=== PATIENT | female | born 1925 | race Caucasian/White ===

== ENCOUNTER 2016-10-06 10:12 | Inpatient (IN) | payer OTHER, MEDICAID ==
[~2016-10-06] VITALS: Ht 157.5 cm; Wt 81.6 kg
--- NOTE | 2016-10-06 10:15 | NUR ---
Patient BIBA to bed 6 at this time.
[2016-10-06 10:16] VITALS: BP 123/77
--- NOTE | 2016-10-06 10:20 | NUR ---
PT TAINA FROM HOME FOR EVALUATION OF LEFT HIP AND LEFT ELBOW PAIN S/P FALL. PT STATES SHE WAS SWEEPING HER DRIVEWAY AND TRIPPED AND FELL ON HER LEFT SIDE. WITH ABRASSION ON LEFT ELBOW;DENIES HITTING HER HEAD;HX HTN, DM, HYPERLIPIDEMIA, HYPOTHYROIDISM.DENIES CP/SOB/N/V AT THIS TIME;HOB ELEVATEDS;NEEDSA ATTENDED;SAFETY MEASURES DONE;BED DOWN;SIDE RAILS UP;ALL MONITORS IN PLACED;POSITIONED FOR COMFORT.
[2016-10-06] MEDS ORDERED: LEVOTHYROXIN0.075 M1 PO (10:21)
[2016-10-06] MEDS ORDERED: LOVASTATIN40 MG PO (10:21)
[2016-10-06] MEDS ORDERED: NORVASC10 M1 PO (10:21)
[2016-10-06] MEDS ORDERED: LISINOPRIL20 M1 PO (10:21)
[2016-10-06] MEDS ORDERED: METFORMIN HCL850 MG PO (10:21)
--- NOTE | 2016-10-06 10:34 | NUR ---
SON AT BEDSIDE.
--- NOTE | 2016-10-06 10:38 | NUR ---
DR WATERS AT BEDSIDE.
--- NOTE | 2016-10-06 10:47 | NUR ---
PT WENT TO XRAY ACCOMPANIED BY TECH.
[2016-10-06] MEDS ORDERED: KETOROLAC 60 MG/2 ML VIAL IM ONE (11:05)
--- NOTE | 2016-10-06 11:06 | NUR ---
BACK FROM XRAY;ALL MONITORS IN PLACED;NO ACUTE DISTRESS NOTED.
[2016-10-06] MEDS ORDERED: NACL 0.9% 1,000 ML IV ONE (11:30)
[2016-10-06] MEDS ORDERED: NEOMYCIN/POLYMYXIN/BACITRACIN 0.9 GM/1 PKT TP ONE (11:34)
--- NOTE | 2016-10-06 12:39 | NUR ---
XRAY AT BEDSIDE.
[2016-10-06] MEDS ORDERED: PIPERACILLIN/TAZOBACTAM 3.375 GM in DEXTROSE 5% 50 ML IV ONE (12:40)
[2016-10-06] MEDS ORDERED: PIPERACILLIN/TAZOBACTAM 3.375 GM VIAL IV ONE (12:50)
[2016-10-06] MEDS ORDERED: ACETAMINOPHEN 325 MG TAB PO PRN (13:50)
[2016-10-06] MEDS ORDERED: ONDANSETRON 4 MG/2 ML VIAL IVP PRN (13:50)
--- NOTE | 2016-10-06 13:51 | NUR ---
PT RESTING ON BED;SON AT BEDSIDE;NO ACUTE DISTRESS NOTED;WILL CONTINUE TO MONITOR PT.
--- NOTE | 2016-10-06 14:43 | NUR ---
Patient will be admitted to care of dr moran. Admited to tele. Will go to room 109 b. Belongings list completed. Report to Jennifer STAPLETON.
--- NOTE | 2016-10-06 15:15 | NUR ---
PT ARRIVED ON [facility]. VS WNL. PT IS A&OX3. PT HAS RONY BANDAGE ON THE ENTIRE LEG ARM. IV ON R HAND RUNNING NS 50ML/HR. PT C/O 09/14 PAIN, WILL GIVE PAIN MED. PT HAS BALLARD CATH DRAINING CLEAR YELLOW URINE. WILL PROVIDE A LUNCH TRAY.
[2016-10-06] MEDS: NACL 0.9% 1,000 ML IV SCH (15:30)
[2016-10-06] MEDS: HYDROcodone/APAP 7.5/325 MG 1 TAB PO PRN (15:39)
--- NOTE | 2016-10-06 15:40 | NUR ---
PHYSICAL THERAPY CAME TO PUT ON TAYLOR'S TRACTION. PT TOLERATED WELL. ASSESSED SKIN, PT HAS REDNESS ON SACRAL AREA, VERY DRY BL HEELS, L ELBOW ABRASION UNABLE TO ASSESS DUE TO BANDAGE+. WILL CONTINUE TO MONITOR.
[2016-10-06 16:00] VITALS: BP 100/37
--- NOTE | 2016-10-06 16:00 | NUR ---
PHYSICAL THERAPY CAME TO PUT ON TAYLOR TRACTION ORDERED. PT TOLERATED WELL. REDNESS ON SACRAL AREA, BRUISE SCATTERED ON RIGHT UPPER ARM, VERY DRY BL FOOT AND ANKLES. EDEMA IN BL EXTREMITIES. Addendum: 10/06/16 at 1941 by Opal Quijano RN DUPLICATE. PLEASE DISREGARD.
--- NOTE | 2016-10-06 18:00 | NUR ---
CALLED DR. HOOD'S TEAM REGARDING BS OF 209, REQUESTING ORDER FOR SLIDING SCALE FOR HUMALOG. PT ATE 40% OF DINNER. REQUESTED COFFEE, PROVIDED COFFEE. FAMILY AT BEDSIDE. WILL CONTINUE TO MONITOR. WILL ENDORSE TO DENTAL BILLING SPECIALIST NURSE ABOUT FREE HANGING WEIGHT OF 7 LBS.
--- NOTE | 2016-10-06 19:25 | NUR ---
ENDORSED PT TO RADIOTELEGRAPHIST NURSE FOR CONTINUITY OF CARE. PT IN STABLE CONDITION.
--- NOTE | 2016-10-06 19:30 | NUR ---
RECEIVED REPORT FROM URVASHI VASQUEZ AT BEDSIDE. PT IS ALERT AWAKE ORIENTED X2 WITH PERIOD OF CONFUSION. INITIAL ASSESSMENT DONE. NO S/S OF RESPIRATORY DISTRESS OR SOB NOTED. NO C/O PAIN OR ANY DISCOMFORT AT THIS TIME. ON TAYLOR'S TRACTION ON THE LEFT LOWER EXTREMITY D/T LEFT HIP FRACTURE. ON BALLARD CATHETER BY GRAVITY AND DRAINING WELL. PLAN OF CARE REVIEWED TO PT AND FAMILY AT BEDSIDE AND VERBALIZED UNDERSTANDING. CALL LIGHT WITHIN REACH. WILL CONTINUE TO MONITOR.
[2016-10-06 20:00] VITALS: BP 111/65
[2016-10-06] MEDS: DOCUSATE SODIUM 100 MG GELCAP PO SCH (20:42)
[2016-10-07] VITALS: BP 115/63
--- NOTE | 2016-10-07 00:20 | NUR ---
PT IS SLEEPING RIGHT NOW BUT EASILY AROUSABLE. NO S/S OF ANY DISCOMFORT AT THIS TIME. ALL NEEDS ARE ATTENDED. CALL LIGHT WITHIN REACH. WILL CONTINUE TO MONITOR.
[2016-10-07 04:00] VITALS: BP 113/62
--- NOTE | 2016-10-07 05:30 | NUR ---
CALLED DR. HAJI AND CLARIFIED REGARDING THE SCHEDULED SURGERY FOR THE PT. AND NEW ORDERS WERE GIVEN (PLS SEE CPOE). NEW ORDERS NOTED AND CARRIED OUT.
--- NOTE | 2016-10-07 07:27 | NUR ---
PT HAS NO S/S OF ANY DISCOMFORT. PLAN OF CARE ENDORSED TO AM SHIFT NURSE FOR CONTINUITY OF CARE.
--- NOTE | 2016-10-07 07:28 | NUR ---
RECEIVED REPORT FROM WEATHERIZATION OPERATIONS MANAGER NURSE AT BEDSIDE. PT IS ALERT AND AWAKE WITH SOME CONFUSION. PT DENIES PAIN. REINTRODUCED OURSELVES AND UPDATED THE BOARD. PT HAS TAYLOR'S TRACTION IN PLACE. IV RUNNING 50ML/HR IN R HAND 22 G. O2 SAT WAS 88%, WILL TALK TO REGARDING SUPPLEMENTAL O2. SON CAME VISITING AT BEDSIDE. PT IS TO HAVE SURGERY AT 1 PM. PT NPO SINCE MIDNIGHT. CONSENT SIGNED IN CHART. TICKET TO RIDE IN CHART. SURGERY PRE-OP DONE PER WEATHERIZATION OPERATIONS MANAGER NURSE. WILL CONTINUE TO MONITOR PT.
[2016-10-07 08:00] VITALS: BP 132/63
[2016-10-07] MEDS ORDERED: ALBUTEROL SULFATE/IPRATROPIU 3 ML SOL IH PRN (08:35)
--- NOTE | 2016-10-07 08:50 | NUR ---
WIRE SPRING RELAY ADJUSTER CALLED TO BEDSIDE TO ASSESS PATIENT FOR DECREASED SATURATION SLIDE MACHINE TENDER AT BEDSIDE PERFORMING ECHOCARDIOGRAM PATIENT HOLDING BREATH OCCASIONALLY ASSESSMENT COMPLETED REVIEWED HX NO ASTHMA/COPD; CXR DATED 10/06/2016 NAD MILD CARDIOMEGALY AND/OR PLEURAL EFFUSION HHN PRN THERAPY NOT INDICATED AT THIS TIME PLACED PATIENT ON SUPPLEMENTAL OXYGEN AT 3 LPM VIA NC WIRE SPRING RELAY ADJUSTER TO MONITOR
[2016-10-07] MEDS: DOCUSATE SODIUM 100 MG GELCAP PO SCH ×2 (09:11→20:48)
[2016-10-07] MEDS: PANTOPRAZOLE 40 MG INJ VIAL IVP SCH (09:14)
[2016-10-07] MEDS: LEVOTHYROXINE 0.075 MG TAB PO SCH (09:14)
[2016-10-07] MEDS: LISINOPRIL 20 MG TAB PO SCH (09:16)
[2016-10-07] MEDS: NACL 0.9% 1,000 ML IV SCH (09:16)
--- NOTE | 2016-10-07 09:20 | NUR ---
PULLED UP PT IN BED SO THE WEIGHT DOES NOT TOUCH THE FLOOR. PT TOLERATED WELL. PT RESTING IN BED. WILL CONTINUE TO MONITOR.
--- NOTE | 2016-10-07 10:21 | NUR ---
PATIENT HAS BEEN SCREENED AND CATEGORIZED MODERATE NUTRITION RISK. PATIENT WILL BE SEEN WITHIN 3-5 DAYS OF ADMISSION. 10/09-10/[address]
--- NOTE | 2016-10-07 11:20 | NUR ---
CLEANED PT, PULLED PT UP IN BED SO THAT WEIGHT IS NOT TOUCHING FLOOR. REINFORCED BANDAGE ON LEFT ELBOW DUE TO SEROSANGUINOUS DRAINAGE. PT TOLERATED WELL. O2 SAT 95% ON 3L NC. WILL CONTINUE TO MONITOR.
--- NOTE | 2016-10-07 11:25 | NUR ---
CM NOTE PER PATIENT ASSISTANT [place] EXT 0000, REVIEWS SHOULD ONLY BE SENT TO [facility]. INITIAL REVIEW SENT TO [facility] FAX# [phone] PH# ELSA [phone] DAPHNIE [phone] EXT [phone]
[2016-10-07 12:00] VITALS: BP 114/57
[2016-10-07] MEDS ORDERED: BUPIVACAINE-MPF 0.5% 30 ML VIAL INJ ONE (12:17)
[2016-10-07] MEDS ORDERED: BACITRACIN 50000 UNITS/1 VIAL ONE (12:17)
--- NOTE | 2016-10-07 12:30 | NUR ---
OR NURSES CAME TO TRANSPORT PT TO OR FOR SURGERY.
[2016-10-07] MEDS ORDERED: DEXTROSE 50% 50 ML SYR IVP PRN (13:05)
--- NOTE | 2016-10-07 13:20 | NUR ---
PT CAME BACK TO UNIT. SURGERY WAS CANCELLED DUE TO PROBLEM WITH STERILIZATION OF INSTRUMENT IN THE OR. PT IS RESCHEDULED FOR WEDNESDAY MORNING. WILL PROVIDE LUNCH TRAY. FAMILY AT BED. NO SIGNS OF DISTRESS OR COMPLAINTS AT THIS TIME. WILL CONTINUE TO MONITOR PT.
--- NOTE | 2016-10-07 14:24 | NUR ---
PT IS EATING LUNCH IN BED. FAMILY AT BEDSIDE. NO COMPLAINTS. WILL CONTINUE TO MONITOR.
[2016-10-07 16:00] VITALS: BP 122/51
[2016-10-07] MEDS: HYDROcodone/APAP 7.5/325 MG 1 TAB PO PRN (16:09)
--- NOTE | 2016-10-07 16:20 | NUR ---
GYM TEACHER AT BEDSIDE TO PERFORM U/S.
[2016-10-07] MEDS: INSULIN LISPRO SLIDING SCALE 100 UNITS/ML VIAL SUBQ PRN (16:45)
--- NOTE | 2016-10-07 18:20 | NUR ---
LEFT A MESSAGE FOR DR. HOOD'S TEAM REGARDING PT'S EPISODE OF 2ND DEGREE HEART BLOCK, WOBITZ II CLASSICAL. PT WAS ASYMPTOMATIC. WILL CONTINUE TO MONITOR.
--- NOTE | 2016-10-07 18:45 | NUR ---
TALKED TO DR. MANCIA REGARDING 2ND DEGREE HEART BLOCK. DR ORDERED STAT EKG. CALLED CARDIOPULMONOLOGY DEPT AND REQUESTED STAT EKG.
--- NOTE | 2016-10-07 19:03 | NUR ---
TALKED TO DR. MANCIA REGARDING PT'S EKG RESULT, SINUS RHYTHM WITH PREMATURE ATRIAL COMPLEXES, LEFT BUNDLE BRANCH BLOCK, ABNORMAL ECG. DR. MANCIA STATED PT WILL SEE A ACCESS SPECIALIST TOMORROW MORNING BUT DOES NOT NEED ANYTHING RIGHT NOW.
--- NOTE | 2016-10-07 19:20 | NUR ---
ENDORSED PT TO THE SENIOR NET DEVELOPER ARCHITECT NURSE AT BEDSIDE FOR CONTINUITY OF CARE. PT IS IN STABLE CONDITION. SENIOR NET DEVELOPER ARCHITECT RN AWARE OF CARDIAC EPISODE.
[2016-10-07 20:00] VITALS: BP 107/58
[2016-10-07] MEDS: BLOOD GLUCOSE MONITORING 1 DEV DEV FS SCH (21:12)
[2016-10-08] VITALS: BP 109/61
[2016-10-08 04:00] VITALS: BP 112/64
--- NOTE | 2016-10-08 05:15 | NUR ---
AM CARE RENDERED. BED LINEN CHANGED. INSTRUCTED PT TO REPOSITION. KEPT CLEAN AND DRY. CALL LIGHT WITHIN REACH. WILL CONTINUE TO MONITOR.
[2016-10-08] MEDS: NACL 0.9% 1,000 ML IV SCH (05:47)
[2016-10-08] MEDS: BLOOD GLUCOSE MONITORING 1 DEV DEV FS SCH ×4 (06:38→20:40)
[2016-10-08] MEDS: INSULIN LISPRO SLIDING SCALE 100 UNITS/ML VIAL SUBQ PRN ×3 (06:39→17:02)
--- NOTE | 2016-10-08 07:26 | NUR ---
PT HAS NO S/S OF ANY DISCOMFORT. PLAN OF CARE ENDORSED TO AM SHIFT NURSE FOR CONTINUITY OF CARE.
--- NOTE | 2016-10-08 07:27 | NUR ---
RECEIVED REPORT FROM THE LEARNING CONSULTANT NURSE AT BEDSIDE FOR CONTINUITY OF CARE. PT IS AWAKE AND ALERT. PT DID NOT RECOGNIZE ME THIS MORNING. I RE-INTRODUCED MYSELF AND UPDATED THE BOARD. PT KEPT ASKING WHEN SHE WOULD BE DISCHARGED. I EXPLAINED TO PT THAT SHE IS TO HAVE SURGERY TOMORROW. PT VERBALIZED UNDERSTANDING. PT'S IV STILL INTACT, R FA 22G NS AT 50ML. PT HAS NC ON AT 3L, SATURATING AT 98%. FC STILL IN PLACE, 75ML OF CLEAR YELLOW URINE IN BAG. TAYLOR'S TRACTION STILL IN PLACE ON L LEG WITH 7LBS OF WEIGHT. L ARM STILL IN RONY WRAP. SHE WILL HAVE A DIET TODAY UNTIL MIDNIGHT, THEN NPO. SURGERY TOMORROW MORNING. WILL CONTINUE TO MONITOR PT.
[2016-10-08 08:00] VITALS: BP 140/57
[2016-10-08] MEDS: LEVOTHYROXINE 0.075 MG TAB PO SCH (08:58)
[2016-10-08] MEDS: LISINOPRIL 20 MG TAB PO SCH (08:58)
[2016-10-08] MEDS: DOCUSATE SODIUM 100 MG GELCAP PO SCH ×2 (08:59→20:33)
[2016-10-08] MEDS: PANTOPRAZOLE 40 MG INJ VIAL IVP SCH (08:59)
--- NOTE | 2016-10-08 09:00 | NUR ---
ADMINISTERED AM MEDS, CRUSHED IN APPLE SAUCE. PT TOLERATED WELL. SON AT BEDSIDE. PT IS STABLE. NO COMPLAINTS OF PAIN. WILL CONTINUE TO MONITOR PT.
--- NOTE | 2016-10-08 10:51 | NUR ---
PT RESTING IN BED. SON AT BEDSIDE. NO SIGNS OF DISTRESS. WILL CONTINUE TO MONITOR PT.
--- NOTE | 2016-10-08 11:39 | NUR ---
FAXED CONCURRENT REVIEW TO [facility] [phone] PHONE DAPHNIE [phone] [id number]
[2016-10-08 12:00] VITALS: BP 129/69
--- NOTE | 2016-10-08 12:00 | NUR ---
DR. FERRARA CALLED TO ASK ABOUT PT'S STATUS. GAVE HIM APPROPRIATE RESULTS. ORDERED: TYPE AND CROSS 2 U OF PACKED CELLS; TRANSFUSE 1 UNIT RBC'S TODAY; NPO AFTER MIDNIGHT.
--- NOTE | 2016-10-08 14:30 | NUR ---
PT SIGNED CONSENT. EXPLAINED THE PROCESS, PROCEDURE, SIDE EFFECTS. PT VERBALIZED UNDERSTANDING. LAB CALLED. BLOOD IS READY. WILL GET EQUIPMENT SET UP TO START.
--- NOTE | 2016-10-08 15:15 | NUR ---
STARTED 1 UNIT OF TRANSFUSION. VS STABLE. PT HAS NO COMPLAINTS. DENIES PAIN. WILL CONTINUED TO MONITOR.
[2016-10-08 16:00] VITALS: BP 127/55
--- NOTE | 2016-10-08 16:45 | NUR ---
PT TOLERATING. DENIES PAIN. V/S STABLE. WILL CONTINUE TO MONITOR PT.
--- NOTE | 2016-10-08 17:39 | NUR ---
PT TOLERATING WELL. GRANDSON AT BEDSIDE. NO SIGNS OF DISTRESS OR PAIN. WILL CONTINUE TO MONITOR PT.
--- NOTE | 2016-10-08 19:30 | NUR ---
RECEIVED REPORT FROM DAY RN FOR CONTINUITY OF CARE. PATIENT IS A&OX2. DISCUSSED PLAN OF CARE WITH GRANDSON AT BEDSIDE, VERBALIZED UNDERSTANDING. SHIFT ASSESSMENT DONE, VS TAKEN, STABLE. NO S/S OF RESPIRATORY DISTRESS NOTED ON 3L NC. PATIENT DENIES PAIN. IV TO RT FA22 G PATENT AND INFUSING FLUIDS. PT HAS BUCKS TRACTION IN PLACE. BALLARD CATHETER NOTED DRAINING URINE TO GRAVITY. SAFETY/FALL PRECAUTIONS ENFORCED. WILL CONTINUE TO MONITOR.
[2016-10-08 20:00] VITALS: BP 125/62
[2016-10-08] MEDS: ATORVASTATIN 20 MG TAB PO SCH (20:33)
--- NOTE | 2016-10-08 20:33 | NUR ---
DUE MEDICATIONS ADMINISTERED, TOLERATED WELL. PATIENT RESTING IN BED. CALL LIGHT IN REACH. WILL MONITOR FREQUENTLY.
--- NOTE | 2016-10-08 21:10 | NUR ---
RECEIVED REPORT FROM JAMES VASQUEZ, PATIENT IN STABLE CONDITION, NO SOB OR SIGN OF DISTRESS, WILL CONTINUE CARE AND CONTINUE TO MONITOR.
--- NOTE | 2016-10-08 22:30 | NUR ---
PATIENT REMOVED OXYGEN, PUT BACK ON NASAL CANNULA, REMINDED PATIENT IMPORTANCE TO KEEP IT ON , PATIENT VERBALIZED UNDERSTANDING, REINFORCEMENT NEEDED.
[2016-10-09] VITALS (8 sets, daily range): BP systolic 98–133; BP diastolic 45–64
--- NOTE | 2016-10-09 00:10 | NUR ---
VITAL SIGNS STABLE, NO SOB OR SIGN OF DISTRESS AT THIS TIME ,CALL LIGHT WITHIN REACH. WILL CONTINUE TO MONITOR
--- NOTE | 2016-10-09 01:15 | NUR ---
PATIENT REMOVED OXYGEN AGAIN, PUT BACK ON, INSTRUCTED PATIENT TO KEEP IT ON, VERBALIZED UNDERSTANDING. CALL LIGHT WITHIN REACH. WILL CONTINUE TO MONITOR.
--- NOTE | 2016-10-09 02:35 | NUR ---
PATIENT SLEEPING, NO SOB OR SIGN OF DISTRESS AT THIS TIME, CALL LIGHT WITHIN REACH. WILL CONTINUE TO MONITOR.
--- NOTE | 2016-10-09 04:15 | NUR ---
VITAL SIGNS STABLE, NO SOB OR SIGN OF DISTRESS AT THIS TIME, CALL LIGHT WITHIN REACH. WILL CONTINUE TO MONITOR.
[2016-10-09] MEDS: NACL 0.9% 1,000 ML IV SCH (06:06)
[2016-10-09] MEDS: BLOOD GLUCOSE MONITORING 1 DEV DEV FS SCH ×6 (06:41→20:42)
[2016-10-09] MEDS: INSULIN LISPRO SLIDING SCALE 100 UNITS/ML VIAL SUBQ PRN ×4 (06:42→20:43)
[2016-10-09] MEDS ORDERED: BACITRACIN 50000 UNITS/1 VIAL ONE (07:06)
[2016-10-09] MEDS ORDERED: DESFLURANE 240 ML BTL INH ONE (07:19)
[2016-10-09] MEDS ORDERED: SUCCINYLCHOLINE CHLORIDE 200 MG/10 ML VIAL IVP ONE (07:19)
[2016-10-09] MEDS ORDERED: ONDANSETRON 4 MG/2 ML VIAL ONE (07:19)
[2016-10-09] MEDS ORDERED: ETOMIDATE 20 MG/10 ML VIAL IVP ONE (07:19)
[2016-10-09] MEDS ORDERED: ePHEDrine 50 MG/ML VIAL ONE (07:19)
[2016-10-09] MEDS ORDERED: DEXAMETHASONE 4 MG/ML VIAL ONE (07:19)
--- NOTE | 2016-10-09 07:20 | NUR ---
ENDORSED PATIENT TO DAY RN AT BEDSIDE, PATIENT IN STABLE CONDITION, PATIENT TO HAVE SURGERY THIS MORNING, CONSENT SIGNED.
[2016-10-09] MEDS ORDERED: ceFAZolin 1,000 MG VIAL ONE (07:37)
--- NOTE | 2016-10-09 07:45 | NUR ---
RECEIVED REPORT FROM NURSE, PT OUT OF ROOM FOR SURGERY.
--- NOTE | 2016-10-09 07:45 | NUR ---
OUT OF ROOM SURGERY
[2016-10-09] MEDS ORDERED: fentaNYL 0.05 MG/ML VIAL ONE (07:46)
[2016-10-09] MEDS ORDERED: HYDROmorphone 1 MG/ML AMP IVP PRN (08:10)
[2016-10-09] MEDS ORDERED: ONDANSETRON 4 MG/2 ML VIAL IVP PRN (08:10)
[2016-10-09] MEDS: DOCUSATE SODIUM 100 MG GELCAP PO SCH ×2 (09:00→20:26)
[2016-10-09] MEDS: PANTOPRAZOLE 40 MG INJ VIAL IVP SCH (09:00)
[2016-10-09] MEDS: LEVOTHYROXINE 0.075 MG TAB PO SCH (09:00)
[2016-10-09] MEDS: LISINOPRIL 20 MG TAB PO SCH (09:00)
--- NOTE | 2016-10-09 11:50 | NUR ---
RECEIVED REPORT FROM OR NURSE. S/P ORIF TO LEFT ELBOW AND LEFT HIP. PT AOX1 TO NAME, STATING "MY ELBOW IS SORE." VS NOTED, BRADYCARDIA NOTED. 96% SPO2 ON 2L SIMPLE MASK. PT DENIES CP, SOB OR S/S OF ACUTE DISTRESS. METALLURGICAL TECHNICIAN IN PLACE. LEFT ELBOW SLING AND ABDUCTOR PILLOW ENSURED. BALLARD CATH, DRAINING CLEAR YELLOW URINE WELL. SCDS IN PLACE. DISCUSSED AND REVIEWED PLAN OF CARE WITH PT. PT STATES "OKAY." WILL CONTINUE TO REINFORCE TEACHING. IV ACCESS ASYMPTOMATIC, PATENT AND INTACT. IVF INFUSING WELL. SAFETY MEASURES ENSURED. CALL LIGHT WITHIN REACH. WILL CONTINUE TO MONITOR. Addendum: 10/09/16 at 1323 by Kristopher Ma RN RIGHT TIME: [id number]
--- NOTE | 2016-10-09 12:00 | NUR ---
PT O2 SAT 83%, PT SEEN WITHOUT O2 SIMPLE MASK. PT PUT BACK ON O2 SIMPLE MASK, O2 SAT 98%. EDUCATED PT THE IMPORTANCE OF KEEP O2 SIMPLE MASK ON. WILL CONTINUE TO MONITOR AND REINFORCE TEACHING.
--- NOTE | 2016-10-09 12:25 | NUR ---
FAXED CONCURRENT REVIEW TO [facility] [phone] PHONE DAPHNIE [phone]
--- NOTE | 2016-10-09 12:32 | NUR ---
SS NOTE: PER BULMARO FROM [facility] ([phone]), THEY ARE ABLE TO ACCEPT PT BUT THEY WOULD NEED AUTH FROM PT'S INSURANCE PRIOR TO PT ARRIVING TO THEIR FACILITY.
--- NOTE | 2016-10-09 13:30 | NUR ---
PT SEEN WITHOUT O2 SIMPLE MASK AND PULSE OX. PT PUT BACK ON O2 SIMPLE MASK, O2 SAT 98%. EDUCATED PT THE IMPORTANCE OF KEEP O2 SIMPLE MASK ON. WILL CONTINUE TO MONITOR AND REINFORCE TEACHING. PT SLEEPING AT THIS TIME. CONDITION STABLE. CALL LIGHT WITHIN REACH. WILL CONTINUE TO MONITOR.
--- NOTE | 2016-10-09 14:00 | NUR ---
O2 SAT 100%. PT SWITCHED TO O2 NC, O2 SAT 100%. NO SOB OR S/S OF ACUTE DISTRESS. WILL CONTINUE TO MONITOR.
[2016-10-09] MEDS: metFORMIN 850 MG TAB PO SCH (16:36)
[2016-10-09] MEDS: HYDROcodone/APAP 7.5/325 MG 1 TAB PO PRN (16:36)
--- NOTE | 2016-10-09 16:40 | NUR ---
PT'S SON AT BEDSIDE. PT C/O PAIN. SEE PAIN ASSESSMENT. PAIN MEDICATION ADMINSTERED ORDERED. DUE MEDICATIONS ADMINISTERED WITH EDUCATION, PT STATED "OKAY." IVF INFUSING WELL. SAFETY MEASURES ENSURED. CONTINUOUS PULSE OX IN PLACE. CALL LIGHT WITHIN REACH. WILL CONTINUE TO MONITOR.
--- NOTE | 2016-10-09 19:15 | NUR ---
RECEIVED PT IN STABLE CONDITION FROM MICHEAL YOON. NO SOB, JOE SIGNS OF DISTRESS. PT IS AOX2, CONFUSED, ON BEDREST S/P BIPOLAR HIP, AND LT ELBOW ORIF WITH INCISION TO ELBOW AND HIP, ABDUCTOR PILLOW AND SLING IN PLACE. PT DENIES PAIN AT THIS TIME. VS STABLE ON ROOM AIR. IV TO RT FA 22G PATENT, ASYMPTOMATIC, INTACT, IVF RUNNING. BALLARD IN PLACE DRAINING TO GRAVITY. EDUCATED PT TO USE IS 10X PER HR, PT VERBALIZED UNDERSTANDING, WILL REINFORCE SINCE PT IS CONFUSED. PLAN OF CARE DISCUSSED WITH PT. SAFETY MEASURES IN PLACE. CALL LIGHT WITHIN REACH. WILL CONTINUE TO MONITOR.
--- NOTE | 2016-10-09 19:46 | NUR ---
ENDORSED PLAN OF CARE TO WASHER BLANKET NURSE. CONDITION STABLE.
[2016-10-09] MEDS: ATORVASTATIN 20 MG TAB PO SCH (20:27)
--- NOTE | 2016-10-09 20:43 | NUR ---
PT TOLERATED DUE MEDS WELL. NO SOB, NO SIGNS OF DISTRESS. IV SITE ASYMPTOMATIC, INTACT, PATENT, IVPB RUNNING. BLOOD SUGAR 253, GAVE INSULIN PER MD ORDER. PT TOLERATED WELL. PT DENIES PAIN AT THIS TIME. PLAN OF CARE DISCUSSED WITH PT. SAFETY MEASURES IN PLACE. CALL LIGHT WITHIN REACH. WILL CONTINUE TO MONITOR.
--- NOTE | 2016-10-09 22:36 | NUR ---
PT AWAKE, CONFUSED, TRYING TO TAKE OFF SLING ON LT ARM, REORIENTED PT AND EDUCATED HER THAT SHE NEEDS THE SLING TO STAY IN PLACE AND HER ARM TO STAY STILL DUE TO THE FRACTURE AND SURGERY, PT VERBALIZED UNDERSTANDING, WILL REINFORCE. NO SOB, NO SIGNS OF DISTRESS. PT DENIES PAIN AT THIS TIME. IV SITE ASYMPTOMATIC, INTACT, PATENT, IVF RUNNING. ABDUCTOR PILLOW IN PLACE AND SLING IN PLACE. PLAN OF CARE DISCUSSED WITH PT. SAFETY MEASURES IN PLACE. CALL LIGHT WITHIN REACH. WILL CONTINUE TO MONITOR.
[2016-10-10] VITALS (10 sets, daily range): BP systolic 77–131; BP diastolic 42–86
--- NOTE | 2016-10-10 00:15 | NUR ---
VS STABLE ON ROOM AIR. NO SOB, NO SIGNS OF DISTRESS. IV SITE ASYMPTOMATIC, INTACT, PATENT, IVF RUNNING. PT DENIES PAIN AT THIS TIME. PLAN OF CARE DISCUSSED WITH PT. SAFETY MEASURES IN PLACE. CALL LIGHT WITHIN REACH. WILL CONTINUE TO MONITOR.
--- NOTE | 2016-10-10 02:51 | NUR ---
PT AWAKE, CONFUSED, REORIENTED PT. NO SOB, NO SIGNS OF DISTRESS. PT DENIES PAIN AT THIS TIME. IV SITE ASYMPTOMATIC, INTACT, PATENT, IVF RUNNING. ABDUCTOR PILLOW IN PLACE AND SLING IN PLACE. PLAN OF CARE DISCUSSED WITH PT. SAFETY MEASURES IN PLACE. CALL LIGHT WITHIN REACH. WILL CONTINUE TO MONITOR
--- NOTE | 2016-10-10 04:09 | NUR ---
VS STABLE ON ROOM AIR. NO SOB, NO SIGNS OF DISTRESS PT DENIES PAIN AT THIS TIME. IV SITE ASYMPTOMATIC, INTACT, PATENT, IVF RUNNING. PLAN OF CARE DISCUSSED WITH PT. SAFETY MEASURES IN PLACE. CALL LIGHT WITHIN REACH. WILL CONTINUE TO MONITOR.
[2016-10-10] MEDS: NACL 0.9% 1,000 ML IV SCH (05:33)
[2016-10-10] MEDS: BLOOD GLUCOSE MONITORING 1 DEV DEV FS SCH ×4 (06:19→21:32)
--- NOTE | 2016-10-10 07:05 | NUR ---
ENDORSED PT IN STABLE CONDITION TO PEDRO ORDONEZ. ALL NEEDS HAVE BEEN MET AT THIS TIME.
--- NOTE | 2016-10-10 07:06 | NUR ---
RECEIVED PT AWAKE AND LYING ON BED, ALERT ORIENTED TO PERSON AND PLACE, WITH PERIODS OF CONFUSION. WITH IV ACCESS AT RIGHT FOREARM 22F INFUSING FLUIDS WELL. WITH BALLARD CATHETER IN PLACE DRAINING YELLOW URINE. WITH LEFT ARM SLING AND BANDAGE AT LEFT ELBOW, AND BANDAGE DRESSING AT LEFT HIP WITH SEROSANGUINEOUS DRAINAGE. WITH ABDUCTOR PILLOW BETWEEN LEGS. DISCUSSED PLAN OF CARE, PT VERBALIZED UNDERSTANDING BUT REINFORCEMENT NEEDED. SAFETY PRECAUTIONS ENFORCED. CALL LIGHT WITHIN REACH, WILL CONTINUE TO MONITOR.
[2016-10-10] MEDS: DOCUSATE SODIUM 100 MG GELCAP PO SCH ×2 (08:39→21:16)
[2016-10-10] MEDS: LEVOTHYROXINE 0.075 MG TAB PO SCH (08:39)
[2016-10-10] MEDS: LISINOPRIL 20 MG TAB PO SCH (08:40)
[2016-10-10] MEDS: metFORMIN 850 MG TAB PO SCH ×2 (08:41→17:19)
--- NOTE | 2016-10-10 08:41 | NUR ---
DUE MEDS GIVEN, PT TOLERATED WELL. WITH SON AT BEDSIDE. HAS POOR APPETITE FOR BREAKFAST. CALL LIGHT WITHIN REACH, WILL CONTINUE TO MONITOR
[2016-10-10] MEDS: PANTOPRAZOLE 40 MG INJ VIAL IVP SCH (08:42)
--- NOTE | 2016-10-10 09:01 | NUR ---
DR FERRARA AT BEDSIDE
--- NOTE | 2016-10-10 11:11 | NUR ---
PT AWAKE AND LYING ON BED. KEPT CLEAN AND DRY. ALL NEEDS ATTENDED. WILL CONTINUE TO MONITOR
[2016-10-10] MEDS: INSULIN LISPRO SLIDING SCALE 100 UNITS/ML VIAL SUBQ PRN ×3 (12:23→21:43)
--- NOTE | 2016-10-10 12:30 | NUR ---
BP RECHECKED-- 79/51. PT NOT IN DISTRESS, AWAKE AND TALKING TO SON. WILL REASSESS.
--- NOTE | 2016-10-10 12:42 | NUR ---
10/10/16 RD FOLLOW UP COMPLETED REFER TO NUTRITION PROGRESS NOTE UNDER CARE ACTIVITY FOR ESTIMATED NEEDS. RD RECOMMENDATIONS: 1. CONTINUE 60gm CCHO DIET TOLERATED. 2. MAY NEED TO CONSIDER A MORE AGGRESSIVE BOWEL REGIMEN IF PT CONTINUES WITHOUT BM. 3. RD ADDED PRUNE JUICE ONCE DAILY TO PTS LUNCH TO HELP IMPROVE GI FUNCTION. 4. RD TO FOLLOW-UP 2-3 DAYS; HIGH RISK. ADRIANE HESS RD
--- NOTE | 2016-10-10 12:55 | NUR ---
BP RECHECKED-- 77/42. NOTIFIED , WILL ADMINISTER NACL 500ML BOLUS
[2016-10-10] MEDS ORDERED: NACL 0.9% 500 ML IV SCH (13:06)
--- NOTE | 2016-10-10 13:34 | NUR ---
BP RECHECKED-- /. NOTIFIED DR REEVES. BP TO BE RECHECKED IN AN HOUR. HOLD LISINOPRIL FOR TOMORROW
--- NOTE | 2016-10-10 14:24 | NUR ---
PHYSICAL THERAPY AT BEDSIDE WITH THE PATIENT
--- NOTE | 2016-10-10 14:30 | NUR ---
BP RECHECKED 129/64
--- NOTE | 2016-10-10 14:45 | NUR ---
DR HERBERT AT BEDSIDE
--- NOTE | 2016-10-10 16:49 | NUR ---
PT AWAKE TALKING TO SON AND GRANDSON AT BEDSIDE. NO SIGNS OF DISTRESS, CALL LIGHT WITHIN REACH, WILL CONTINUE TO MONITOR.
--- NOTE | 2016-10-10 18:34 | NUR ---
PT ASLEEP RESTING COMFORTABLY IN BED. OFFLOADED PRESSURE AREAS. ALL NEEDS ATTENDED. WILL CONTINUE TO MONITOR
--- NOTE | 2016-10-10 19:40 | NUR ---
ENDORSED PT TO PEDRO WHATLEY FOR CONTINUITY OF CARE IN STABLE CONDITION
--- NOTE | 2016-10-10 20:00 | NUR ---
RECEIVED AWAKE,ALERT,CONFUSED. AFEBRILE, NOT IN ACUTE DISTRESS. NO PAIN OR DISCOMFORT NOTED. WITH IV FLUID NS INFUSING AT 10 ML/HR VIA RIGHT FOREARM #22 IV LINE. LEFT ARM ON A SPLINT/SLING. LEFT HIP DRESSING CEAN,DRY AND INTACT. WITH ABDUCTOR PILLOW IN PLACE. PT. ABLE TO WIGGLE LEFT FINGERS AND TOES. BALLARD DRAINING HAZY,DARK BILL URINE. SCD'S IN PLACED. SR/SB WITH BBB,PAC'S AT 50'S-60'S ON THE MONITOR. VS STABLE, WILL CONTINUE TO MONITOR. NEEDS ATTENDED.
[2016-10-10] MEDS: ATORVASTATIN 20 MG TAB PO SCH (21:16)
--- NOTE | 2016-10-10 21:18 | NUR ---
DUE MEDICATIONS GIVEN SCHEDULED.
--- NOTE | 2016-10-10 21:43 | NUR ---
[id number]. HUMALOG 2 UNITS SQ GIVEN PER SLIDING SCALE.
[2016-10-11] VITALS: BP 120/55
--- NOTE | 2016-10-11 | NUR ---
AWAKE,NOT IN ANY KIND OF DISTRESS. NO PAIN OR DISCOMFORT NOTED. SAO2=88-89% ON ROOM AIR. PLACED ON O2 @ 2LPM VIA NC. SAO2 IMPROVED TO 97%. SIDE RAILS UP,CALL LIGHT WITHIN REACH. KEPT WARM AND COMFORTABLE.
[2016-10-11 04:00] VITALS: BP 107/41
--- NOTE | 2016-10-11 04:00 | NUR ---
ASLEEP, NO SIGNIFICANT CHANGE IN CONDITION. VS REMAIN STABLE.
[2016-10-11] MEDS: NACL 0.9% 1,000 ML IV SCH (05:10)
[2016-10-11] MEDS: BLOOD GLUCOSE MONITORING 1 DEV DEV FS SCH ×4 (06:12→20:32)
[2016-10-11] MEDS: INSULIN LISPRO SLIDING SCALE 100 UNITS/ML VIAL SUBQ PRN ×3 (06:21→21:27)
--- NOTE | 2016-10-11 06:21 | NUR ---
[id number]. 2 UNITS OF HUMALOG SQ GIVEN PER SLIDING SCALE.
--- NOTE | 2016-10-11 07:25 | NUR ---
ENDORSED CARE TO JOSEF VASQUEZ.
--- NOTE | 2016-10-11 07:35 | NUR ---
RECEIVED PT REPORT AT BEDSIDE FROM NIGHT NURSE. PT IS SLEEPING IN BED. NOTED IV ON R FA WITH IVF RUNNING. PT HAS A SLING ON THE LEFT ARM. PT SHOWS NO S/S OF DISTRESS. PT HAS NO C/O PAIN. BED IS LOWERED WITH CALL LIGHT WITHIN REACH. WILL CONTINUE TO MONITOR.
[2016-10-11 08:00] VITALS: BP 110/54
[2016-10-11] MEDS: DOCUSATE SODIUM 100 MG GELCAP PO SCH ×2 (09:09→20:20)
[2016-10-11] MEDS: PANTOPRAZOLE 40 MG INJ VIAL IVP SCH (09:10)
[2016-10-11] MEDS: metFORMIN 850 MG TAB PO SCH ×2 (09:10→17:14)
[2016-10-11] MEDS: LEVOTHYROXINE 0.075 MG TAB PO SCH (09:10)
[2016-10-11] MEDS: LISINOPRIL 20 MG TAB PO SCH (09:10)
--- NOTE | 2016-10-11 09:15 | NUR ---
ADMINISTERED SCHEDULED MEDICATIONS. PT TOLERATED WELL. PT HAS FAMILY AT BEDSIDE. PT SHOWS NO S/S OF DISTRESS.
--- NOTE | 2016-10-11 11:30 | NUR ---
PT IS IN BED CALM AND COOPERATIVE. PT IS WITH FAMILY AND SHOWS NO S/S OF DISTRESS.
[2016-10-11 11:59] VITALS: BP 108/52
--- NOTE | 2016-10-11 13:00 | NUR ---
PT IS IN BED CALM AND SHOWS NO S/S OF DISTRESS.
--- NOTE | 2016-10-11 14:00 | NUR ---
PT DRESSING ON THE LEFT HIP IS CLEAN DRY AND INTACT. PT HAS SPLINT ON THE L ARM WITH SLING THAT IS CLEAN AND DRY.
[2016-10-11 16:00] VITALS: BP 105/51
--- NOTE | 2016-10-11 16:00 | NUR ---
PT IN BED WITH FAMILY AT BEDSIDE.
--- NOTE | 2016-10-11 18:00 | NUR ---
PT SHOWS NO S/S OF DISTRESS. PT IS WITH FAMILY AND DENIES PAIN. PT STATES NO SOB. PT IS STILL ON 2L O2 NC.
--- NOTE | 2016-10-11 19:15 | NUR ---
GAVE REPORT TO NIGHT NURSE. PT ENDORSED IN STABLE CONDITION.
--- NOTE | 2016-10-11 19:16 | NUR ---
RECEIVED REPORT FROM DAY RN FOR CONTINUITY OF CARE. PATIENT IS A&OX2, DISCUSSED PLAN OF CARE WITH GRANDSON AT BEDSIDE, VERBALIZED UNDERSTANDING. SHIFT ASSESSMENT DONE, VS TAKEN, STABLE CONDITION. NO S/S OF RESPIRATORY DISTRESS NOTED ON 2L NC. PATIENT DENIES PAIN. IV TO RT FA PATENT AND INFUSING FLUIDS. WEDGE BOARD IN PLACE S/P ORIF. SLING TO LT ARM NOTED. BALLARD CATHETER IN PLACE DRAINING BILL COLORED URINE TO GRAVITY. PT HAS DRESSING TO LEFT HIP DRY AND INTACT. SAFETY/FALL PRECAUTIONS ENFORCED. WILL CONTINUE TO MONITOR.
[2016-10-11 20:00] VITALS: BP 99/64
[2016-10-11] MEDS: ATORVASTATIN 20 MG TAB PO SCH (20:20)
--- NOTE | 2016-10-11 20:20 | NUR ---
DUE MEDICATIONS ADMINISTERED, TOLERATED WELL.
--- NOTE | 2016-10-11 22:00 | NUR ---
PATIENT IS SLEEPING. NO S/S OF DISTRESS OR DISCOMFORT NOTED. WILL CONTINUE TO MONITOR.
[2016-10-12] VITALS: BP 116/50
--- NOTE | 2016-10-12 00:10 | NUR ---
VS STABLE, PATIENT SLEEPING NO S/S OF DISTRESS OR DISCOMFORT NOTED. WILL CONTINUE TO MONITOR.
--- NOTE | 2016-10-12 01:58 | NUR ---
REPOSITIONED PATIENT FOR COMFORT, TOLERATED WELL. PATIENT DENIES PAIN. WILL CONTINUE TO MONITOR.
[2016-10-12 04:00] VITALS: BP 112/56
--- NOTE | 2016-10-12 04:00 | NUR ---
VS TAKEN, STABLE. NO S/S OF DISTRESS OR DISCOMFORT NOTED. WILL CONTINUE TO MONITOR.
--- NOTE | 2016-10-12 05:40 | NUR ---
BLOOD SUGAR TAKEN, 133, NO COVERAGE NEEDED. WILL CONTINUE TO MONITOR.
[2016-10-12] MEDS: BLOOD GLUCOSE MONITORING 1 DEV DEV FS SCH ×2 (06:00→12:27)
[2016-10-12] MEDS: NACL 0.9% 1,000 ML IV SCH (06:00)
--- NOTE | 2016-10-12 07:20 | NUR ---
ENDORSED PATIENT TO DAY RN FOR CONTINUITY OF CARE, PATIENT IS IN STABLE CONDITION.
--- NOTE | 2016-10-12 07:30 | NUR ---
REPORT RECEIVED FROM NIDA CHAVIS, PT RESTING QUIETLY IN NAD, RESP EVEN UNLABORED ON 2L NC, PT DENIES PAIN LEFT ARM IN SLING, LEG WEDGE IN PLACE BETWEEN LEGS, IV INFUSING WELL, SITE CLEAR, CALL [facility] WITHIN REACH, NO IMMEDIATE NEEDS AT THIS TIME, WILL CONTINUE TO MONITOR
[2016-10-12 08:00] VITALS: BP 129/63
[2016-10-12] MEDS: LISINOPRIL 20 MG TAB PO SCH (08:40)
[2016-10-12] MEDS: metFORMIN 850 MG TAB PO SCH (08:40)
[2016-10-12] MEDS: PANTOPRAZOLE 40 MG INJ VIAL IVP SCH (08:41)
[2016-10-12] MEDS: LEVOTHYROXINE 0.075 MG TAB PO SCH (08:41)
[2016-10-12] MEDS: DOCUSATE SODIUM 100 MG GELCAP PO SCH (08:41)
--- NOTE | 2016-10-12 10:22 | NUR ---
SS NOTE: PER ARIEL FROM [facility] ([phone]), PT CAN GO TO ROOM [address] ALEXANDER ANYTIME ONCE THEY RECEIVE AUTH FROM [facility]. JAYCOB CHACKO.
[2016-10-12] MEDS: HYDROcodone/APAP 7.5/325 MG 1 TAB PO PRN (11:26)
[2016-10-12] MEDS ORDERED: BLOOD GLUCOSE1 EACH FS (11:53)
[2016-10-12] MEDS ORDERED: COLACE100 M1 PO (11:53)
[2016-10-12] MEDS ORDERED: HEPARIN SOD5000 U/M1 SUBQ (11:53)
[2016-10-12] MEDS ORDERED: APAP/HYDROCODON1 T30 PO (11:53)
[2016-10-12] MEDS ORDERED: ZOFRAN ODT4 MG SL (11:53)
[2016-10-12] MEDS ORDERED: HUMALOG SL100 UNITS/ SUBQ (11:53)
[2016-10-12] MEDS ORDERED: ASPIRIN325 M2 PO (11:59)
[2016-10-12 12:00] VITALS: BP 103/46
--- NOTE | 2016-10-12 13:28 | NUR ---
Clincal review faxed to Kristal Becerril- Awaiting for Authorization for [facility]. room 111 [address] under the service of Dr. Hernandes
--- NOTE | 2016-10-12 13:42 | NUR ---
PT AT BEDSIDE
--- NOTE | 2016-10-12 14:09 | NUR ---
Called TO ELSA AT [phone] AT 1300 REGARDING AUTH AND LEFT A MESSAGE. Review faxed to [facility] at [phone]
--- NOTE | 2016-10-12 14:31 | NUR ---
SS NOTE: I SPOKE WITH PT'S GRANDSON, OSITO AND PT BEDSIDE. I INFORMED THEM THAT PT WILL BE TRANSFERRED TO [facility] TODAY BUT WE ARE WAITING FOR AUTH FROM PT'S INSURANCE FOR SNF AND TRANSPORT, THEY VERBALIZED UNDERSTANDING.
--- NOTE | 2016-10-12 14:51 | NUR ---
JUST LEFT A MESSAGE FOR ELSA ON HER PHONE NUMBER [phone] AND ALSO AT HER CELL AT [phone]
--- NOTE | 2016-10-12 14:53 | NUR ---
PT SITTING UP IN CHAIR, RESP EVEN UNLABORED, SKIN WARM DRY COLOR WNL, SMILING, APPEARS COMFORTABLE, DENIES PAIN, IVF INFUSING SITE CLEAR, DENIES ANY IMMEDIATE NEEDS, LEANNA MCNEILL AT BEDSIDE, AWAITING AUTHRIZATION FOR SNF PLACEMENT, WILL CONTINUE TO MONITOR
--- NOTE | 2016-10-12 15:00 | NUR ---
[facility] CALLED AUTHORIZATION TO TRANSFER TO [facility] [id number] AND [facility] FOR TRANSPORT [id number]
--- NOTE | 2016-10-12 15:30 | NUR ---
OK TO CHANGE DRESSING PER DR FERRARA PER CHARGE NURSE MICHAEL, DRESSING CHANGED, PHOTOS TAKEN, PT EDWAR WELL, LEFT HIP SURGICAL WOUND CDI WELL APPROXIMATED WITH MINI, LEFT ELBOW WITH STAPLE WITH SOME ABRASIONS, DISTAL TO SURGICAL WOUND, LONG ARM POSTERIOR SPLINT REPLACED AND ARM BACK IN SLING, PT EDWAR WELL.
[2016-10-12 16:00] VITALS: BP 125/57
--- NOTE | 2016-10-12 16:30 | NUR ---
REPORT CALL[facility] KRISTIN FRANK RN, [facility] ETA 1700, FAMILY AWARE OF PLAN, PT RESTING QUIETLY IN NAD, RESP EVEN UNLABORED ON 2L NC, DENIES PAIN OR DISCOMFORT, WILL CONTINUE TO MONITOR.
[2016-10-12 16:37] VITALS: BP 125/57
--- NOTE | 2016-10-12 17:05 | NUR ---
[facility] HERE, REPORT GIVEN, TAKEN TO [facility] IN [facility] AT THIS TIME.
== END 2016-10-12 17:05 | DRG 956 ==
LOC: MED 10:12 → MTU 14:33
PROVIDERS: ADMIT Family Medicine; ATTEND Family Medicine
PROC: 2W39X1Z Immobilization of Left Upper Extremity using Splint (ICD-10-PCS; 2016-10-06)
PROC: 30233N1 Transfusion of Nonautologous Red Blood Cells into Peripheral Vein, Percutaneous Approach (ICD-10-PCS; 2016-10-08)
PROC: 2W5 Placement, Anatomical Regions, Removal (ICD-10-PCS; 2016-10-09)
PROC: 0SRS0JZ Replacement of Left Hip Joint, Femoral Surface with Synthetic Substitute, Open Approach (ICD-10-PCS; principal; 2016-10-09 07:30)
PROC: 0PSL04Z Reposition Left Ulna with Internal Fixation Device, Open Approach (ICD-10-PCS; 2016-10-09 07:30)
DX: S72.012A Unspecified intracapsular fracture of left femur, initial encounter for closed fracture (principal); S52.022B Displaced fracture of olecranon process without intraarticular extension of left ulna, initial encounter for open fracture type I or II; N17.0 Acute kidney failure with tubular necrosis; D68.69 Other thrombophilia; E87.1 Hypo-osmolality and hyponatremia; I10 Essential (primary) hypertension; E03.9 Hypothyroidism, unspecified; E78.5 Hyperlipidemia, unspecified; E83.42 Hypomagnesemia; E66.9 Obesity, unspecified; W18.39XA Other fall on same level, initial encounter; F10.20 Alcohol dependence, uncomplicated; E11.65 Type 2 diabetes mellitus with hyperglycemia; F03.90 Unspecified dementia, unspecified severity, without behavioral disturbance, psychotic disturbance, mood disturbance, and anxiety; S72.002A Fracture of unspecified part of neck of left femur, initial encounter for closed fracture; I44.1 Atrioventricular block, second degree; D72.829 Elevated white blood cell count, unspecified; D64.9 Anemia, unspecified; E11.51 Type 2 diabetes mellitus with diabetic peripheral angiopathy without gangrene; Z71.3 Dietary counseling and surveillance; Z79.84 Long term (current) use of oral hypoglycemic drugs; Z79.899 Other long term (current) drug therapy; Z68.32 Body mass index [BMI] 32.0-32.9, adult; Y93.89 Activity, other specified; Y92.89 Other specified places as the place of occurrence of the external cause; Y99.8 Other external cause status; Z90.710 Acquired absence of both cervix and uterus; Z82.49 Family history of ischemic heart disease and other diseases of the circulatory system